=== PATIENT | female | born 1980 ===

== ENCOUNTER 2018-09-15 11:09 | Day surgery (SDC) | payer OTHER ==
[~2018-09-15 11:09] MED LIST: Buffered Lidocaine 1% SYRIN* 1 ML/SYRINGE INTRADERM ONE; Lactated Ringers 1000 ML Bag* 1,000 ML IV SCH
[2018-09-15] MEDS ORDERED: Buffered Lidocaine 1% SYRIN* 1 ML/SYRINGE INTRADERM ONE (12:00)
[2018-09-15] MEDS ORDERED: DOXYcycline IV* 100 MG in NS 0.9% 250 ML* 250 ML IVPB STA (12:13)
[2018-09-15 12:56] LABS: ABS Basophils 0.1 10^3/ul (0-0.2); ABS Eosinophils 0.1 10^3/ul (0-0.6); ABS Lymphocytes 2.4 10^3/ul (1.0-4.8); ABS Monocytes 0.6 10^3/ul (0-0.8); ABS Neutrophils 5.8 10^3/ul (1.5-7.7); Eosinophil % 1.1 %; Hematocrit 36 % (35-47); Hemoglobin 12.3 g/dL (12.0-16.0); Lymphocyte % 26.4 %; Mean Corpuscular HGB Conc 34 g/dL (31-36); Mean Corpuscular Hemoglobin 30 pg (27-31); Mean Corpuscular Volume 89 fL (80-97); Mean Platelet Volume 8.1 fL (7.4-10.4); Platelet Count 273 10^3/uL (150-450); Red Blood Count 4.08 10^6 /uL (3.70-4.87); Red Cell Distribution Width 14 % (10.5-15)
[2018-09-15] MEDS ORDERED: fentaNYL* 50 MCG/ML 2 ML VIAL (100 MCG VIAL) ONE (13:50)
[2018-09-15] MEDS ORDERED: Midazolam* 1 MG/ML 2 ML VIAL (2 MG) ONE ×2 (13:50→14:03)
[2018-09-15] MEDS ORDERED: Propofol* 10 MG/ML 20 ML BTL ONE (13:51)
[2018-09-15] MEDS ORDERED: Chloroprocaine 2%* 20 ML VIAL ONE (13:51)
[2018-09-15] MEDS ORDERED: Lidocaine 2% PF * 5 ML VIAL ONE (13:51)
[2018-09-15] MEDS ORDERED: OXYTOCIN* 10 UNITS/ML 1 ML VIAL ONE (14:23)
[2018-09-15] MEDS ORDERED: Phenylephrine 40 MCG/ML SYRINGE ONE (14:31)
[2018-09-15] MEDS ORDERED: Naloxone* 0.4 MG/ML 1 ML VIAL IV PRN (14:44)
[2018-09-15] MEDS ORDERED: Ondansetron INJ* 2 MG/ML VIAL IV PRN (14:44)
[2018-09-15] MEDS ORDERED: fentaNYL* 50 MCG/ML 2 ML VIAL (100 MCG VIAL) IV PRN (14:44)
[2018-09-15 16:10] VITALS: BP 124/64
--- NOTE | 2018-09-15 19:55 | OP ---
OPERATIVE REPORT: DATE OF OPERATION: 09/15/18 DATE OF : 78 SURGEON: Demetris Beckford MD. CORPORATE TRAINER: None. ANESTHESIA: Spinal. PRE-OP DIAGNOSIS: Missed . POST-OP DIAGNOSIS: Missed . OPERATIVE PROCEDURE: D and C. ESTIMATED BLOOD LOSS: 50 cc. SPECIMEN: Products of conception. FLUIDS: None. DRAINS: None. FINDINGS: A 9-week size uterus, midposition. DESCRIPTION OF PROCEDURE: The patient identified, procedure identified as D and C. The patient's abd omen was prepped and draped in the usual fashion in the dorsal lithotomy position under spinal anesth esia. Two single-tooth tenaculums were placed on the anterior lip of the cervix. The cervix was eas dayana dilated up to a #31 [place] dilator. The #10 suction curette was inserted and suction curettaged w ith scant tissue obtained. The sharp curette was introduced and initially fluid was obtained from th e sac and then using the polyp forceps the rest of the placental tissue was obtained. Suction was re inserted and a small amount of tissue was obtained. The sharp curette was inserted and sharp curetta ge was performed until gritty sensation was felt throughout the circumference. The polyp forceps wer e inserted. No further tissues was obtained and the suction was reinserted no further tissue was obt ained. A sharp gritty sensation was felt throughout the circumference. All instruments were remove d from the vagina. Good hemostasis was verified. The patient returned to recovery room in stable co nditions. [id number]/[facility] #: [id number]
== END 2018-09-15 16:13 | disposition home or self-care (01) ==
LOC: OR 11:09
PROVIDERS: ATTEND Obstetrics & Gynecology
DX: O02.1 Missed abortion (principal); F41.8 Other specified anxiety disorders
CPT/HCPCS: 36415; 85025; 86850; 86900; 86901; 88305; J2250; J2400; J2590; J2704; J3010